=== PATIENT | female | born 2000 | race American Indian/Alaskan Native ===

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

== ENCOUNTER 2020-10-21 18:27 | Emergency (ER) | payer SELFPAY ==
[2020-10-21 20:03] VITALS: BP 163/106
== END 2020-10-21 20:00 | disposition left against medical advice (07) ==
LOC: ED 18:27
DX: R10.9 Unspecified abdominal pain (principal); Z53.21 Procedure and treatment not carried out due to patient leaving prior to being seen by health care provider